=== PATIENT | male | born 1960 | race Caucasian/White ===

== ENCOUNTER 2016-10-03 08:57 | Emergency (ER) | payer OTHER ==
[~2016-10-03 08:57] MED LIST: AMLO5TAB2 PO; ANDR1.624 TD; CYMB60CA3 PO; GLIM2TA PO; IBUP-1114 PO; INVO300T PO; JANU50TA8 PO; LISI10TA4 PO; PRIL40CA PO; SUCR1TA PO
[2016-10-03] MEDS ORDERED: LIDOCAINE 2% MDV 20 ML VIAL As Ordered ONE (09:27)
[2016-10-03] MEDS ORDERED: NAPROXEN 250 MG TAB As Ordered ONE (10:02)
[2016-10-03] MEDS ORDERED: ACETAMINOPHEN 325 MG TAB As Ordered ONE (10:02)
--- NOTE | 2016-10-03 10:15 | EDDOCDS ---
Nurse's Notes [facility] Name: Preston Johnson Age: 56 yrs Sex: Male : 1960 Arrival Date: 10/03/2016 Time: 08:57 Bed PD Private MD: Diagnosis: Laceration without foreign body of scalp Presentation: 10/03 09:04 Presenting complaint: Patient states: hit head on door casing while walking into kr3 trailer. Laceration upper forehead. This patient has no additional risk factors. Mechanism of Injury: resulted from a direct blow. Adult Sepsis Screening: The patient does not have new or worsening altered mentation. Patient's respiratory rate is less than 22. Systolic blood pressure is greater than 100. Patient has a qSOFA score of 0- Negative Sepsis Screen. Suicide/Homicide risk assessment- the patient denies having any suicidal and/or homicidal ideations and does not present with any other emotional, behavioral or mental health complaints. 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 Transition of care: patient was not received from another setting of care. 09:04 Acuity: ROBBIE Level 4 kr3 09:04 Method Of Arrival: Walkin/Carried/Asstd kr3 Triage Assessment: 09:07 General: Appears in no apparent distress, comfortable, Behavior is cooperative. Pain: kr3 Denies pain. HIV screening NA for this visit Offered previously. Neurological: Level of Consciousness is awake, alert, Gait is steady, Speech is normal, Facial symmetry appears normal, Reports no additional symptoms. Injury Description: Laceration sustained to forehead is clean, was sustained 30-60 minutes ago. is bleeding no active bleeding noted. Historical: - Allergies: no known allergies; - Home Meds: 1. Janumet 50-1,000 mg oral tab 1 tab daily 2. Invokana 300 mg oral tab 1 tab once daily 3. lisinopril 10 mg Oral tab 1 tab once daily 4. Prilosec 40 mg Oral cpDR 1 cap 2 times per day 5. sucralfate 1 gram Oral tab 2 times per day 6. Cymbalta 60 mg Oral cpDR 1 cap once daily 7. Androgen 20.25/1.25gm daily 8. Amlodipine Unknown Oral once daily - PMHx: Diabetes - NIDDM: controlled; Gastric Ulcers; Hypertension; [place]; - PSHx: Cholecystectomy; Shoulder Arthroplasty. Right; - Social history: Smoking status: Patient states former smoker of tobacco. No barriers to communication noted, The patient speaks fluent Turkish, Speaks appropriately for age. - Family history: Not pertinent. - : The pt / caregiver states he / she is not on anticoagulants. Home medication list is obtained from the patient. - Exposure Risk Screening:: None identified. Screenin:38 Screening information is obtained from the patient. Fall risk: No risks identified. srm Assistance ADL's: requires no assistance with activities of daily living. Abuse/DV Screen: The patient / caregiver reports he/she is: not in a situation that causes fear, pain or injury. Nutritional screening: No deficits noted. home support is adequate. Assessment: 09:38 General: Appears in no apparent distress, Behavior is appropriate for age, cooperative. srm Neurological: Level of Consciousness is awake, alert, Oriented to person, place, time, Moves all extremities. Full function Gait is steady, Speech is normal, Facial symmetry appears normal. Respiratory: No deficits noted. Derm: 1-1.5 inch length lac to forehead more to the right midline. cleansed with wound service line bus cleaner. 10:13 Reassessment: Patient appears in no apparent distress at this time. Patient states srm feeling better. Vital Signs: 09:06 BP 160 / 88 LA Sitting (man/); Pulse 104; Resp 18; Temp 97.9(T); Pulse Ox 99% ; Weight srm 117.93 kg (R); Height 5 ft. 9 in. (175.26 cm); 09:06 Body Mass Index 38.39 (117.93 kg, 175.26 cm) srm Vitals: 09:11 Log In Time: October 03, 2016 at 08:57. srm Randy Coma Score: 09:04 Eye Response: spontaneous(4). Verbal Response: oriented(5). Motor Response: obeys kr3 commands(6). Total: 15. ED Course: 09:02 Patient visited by Laron Oleary Reg. mpb 09:02 Patient moved to Waiting mpb 09:04 Patient moved to Triage 3 kr3 09:05 Triage Initiated kr3 09:10 Patient visited by Leatha Hopkins RN. srm 09:13 Robert Reece PA-C is PHCP. jk8 09:13 Sandra Ziegler MD is Attending Physician. jk8 09:13 Patient visited by Robert Reece PA-C. jk8 09:28 Patient moved to srm 09:38 The patient / caregiver is instructed regarding the plan of care and ED course. srm Accompanied by Friend, Patient has correct armband on for positive identification. 09:39 Patient visited by Leatha Hopkins RN. srm 09:40 [facility] Payment Agreement was scanned into [employer] and attached to record. lg 10:14 No IV's were initiated during this patient's visit. No procedures done that require srm assistance. Administered Medications: 09:37 Drug: Lidocaine 10 ml [lidocaine 20 mg/mL (2 %) injection solution (10 mL)] {Note: srm administered by PA.} Route: Infiltration; 10:13 Drug: Acetaminophen 650 mg [acetaminophen 325 mg tablet (2 tabs)] Route: PO; srm 10:13 Drug: Naproxen 500 mg [naproxen 250 mg tablet (2 tabs)] Route: PO; srm Order Results: There are currently no results for this order. Outcome: 10:00 Discharge ordered by Provider. jk8 10:14 Discharge Assessment: Patient awake, alert and oriented x 3. No cognitive and/or srm functional deficits noted. Patient verbalized understanding of disposition instructions. patient administered narcotics - no. The following High Risk Discharge criteria are identified: None. Discharged to home ambulatory, with friend. Condition: good Condition: stable. Discharge instructions given to patient, Instructed on discharge instructions, follow up and referral plans. medication usage, Demonstrated understanding of instructions, medications, Pt was receptive of discharge instructions/ teaching. Prescriptions given X 2. No special radiology studies were completed. Property sent home with patient. 10:14 Patient left the ED. srm Signatures: Leatha Hopkins, RN RN Catrachito Castellon, Reg Reg lg Sabi Edmondson RN RN kr3 Robert Reece PA-C PA-C jk8 Laron Oleary, Reg Reg mpb MTDD
--- NOTE | 2016-10-03 10:15 | EDDOCDS ---
Physician Documentation [facility] Name: Preston Johnson Age: 56 yrs Sex: Male : 1960 Arrival Date: 10/03/2016 Time: 08:57 Bed PD Private MD: Disposition: 10/03/16 10:00 Discharged to Home/Self Care. Impression: Laceration without foreign body of scalp. - Condition is Stable. - Prescriptions for naproxen 500 mg Oral tablet - take 1 tablet by ORAL route every 12 hours; 28 tablet. Tylenol 325 mg Oral Tablet - take 2 tablet by ORAL route every 6 hours as needed; 1 bottle. - Medication Reconciliation, Local Pharmacy Hours form. - Follow up: Private Physician; When: 2 - 3 days; Reason: Recheck today's complaints. Follow up: Emergency Department; When: As soon as possible; Reason: Worsening of conditions. - Problem is new. - Symptoms are unchanged. Historical: - Allergies: no known allergies; - Home Meds: 1. Janumet 50-1,000 mg oral tab 1 tab daily 2. Invokana 300 mg oral tab 1 tab once daily 3. lisinopril 10 mg Oral tab 1 tab once daily 4. Prilosec 40 mg Oral cpDR 1 cap 2 times per day 5. sucralfate 1 gram Oral tab 2 times per day 6. Cymbalta 60 mg Oral cpDR 1 cap once daily 7. Androgen 20.25/1.25gm daily 8. Amlodipine Unknown Oral once daily - PMHx: Diabetes - NIDDM: controlled; Gastric Ulcers; Hypertension; [place]; - PSHx: Cholecystectomy; Shoulder Arthroplasty. Right; - Social history: Smoking status: Patient states former smoker of tobacco. No barriers to communication noted, The patient speaks fluent Hebrew, Speaks appropriately for age. - Family history: Not pertinent. - : The pt / caregiver states he / she is not on anticoagulants. Home medication list is obtained from the patient. - Exposure Risk Screening:: None identified. Vital Signs: 10/03 09:06 BP 160 / 88 LA Sitting (man/); Pulse 104; Resp 18; Temp 97.9(T); Pulse Ox 99% ; Weight srm 117.93 kg / 259.99 lbs (R); Height 5 ft. 9 in. (175.26 cm); 09:06 Body Mass Index 38.39 (117.93 kg, 175.26 cm) srm Ivor Coma Score: 09:04 Eye Response: spontaneous(4). Verbal Response: oriented(5). Motor Response: obeys kr3 commands(6). Total: 15. MDM: 09:17 Lidocaine 20 mg/mL (2 %) 10 ml Infiltration once; to bedside ordered. jk8 09:17 Wound Care ordered. jk8 09:28 Financial registration complete. lg 09:40 [facility] Payment Agreement was scanned into [employer] and attached to record. lg 09:58 Acetaminophen Tablet 650 mg PO once ordered. jk8 09:58 Naproxen 500 mg PO once; administer with food or milk ordered. jk8 Administered Medications: 09:37 Drug: Lidocaine 10 ml [lidocaine 20 mg/mL (2 %) injection solution (10 mL)] {Note: srm administered by PA.} Route: Infiltration; 10:13 Drug: Acetaminophen 650 mg [acetaminophen 325 mg tablet (2 tabs)] Route: PO; srm 10:13 Drug: Naproxen 500 mg [naproxen 250 mg tablet (2 tabs)] Route: PO; srm Signatures: Leatha Hopkins, RN RN srm Catrachito Montalvo, Huan Pressley lg Sabi Edmondson,ADENIKE RN kr3 Robert Reece PA-C PA-C jhuey The chart was reviewed and I authenticate all verbal orders and agree with the evaluation and treatment provided.Attachments: 09:40 [facility] Payment Agreement lg MTDD
--- NOTE | 2016-10-05 11:15 | EDDOCDS ---
Nurse's Notes [facility] Name: Preston Johnson Age: 56 yrs Sex: Male : 1960 Arrival Date: 10/03/2016 Time: 08:57 Bed PD Private MD: Diagnosis: Laceration without foreign body of scalp Presentation: 10/03 09:04 Presenting complaint: Patient states: hit head on door casing while walking into [employer] trailer. Laceration upper forehead. This patient has no additional risk factors. Mechanism of Injury: resulted from a direct blow. Adult Sepsis Screening: The patient does not have new or worsening altered mentation. Patient's respiratory rate is less than 22. Systolic blood pressure is greater than 100. Patient has a qSOFA score of 0- Negative Sepsis Screen. Suicide/Homicide risk assessment- the patient denies having any suicidal and/or homicidal ideations and does not present with any other emotional, behavioral or mental health complaints. Status: Patient is not a services account manager or dependent. Transition of care: patient was not received from another setting of care. 09:04 Acuity: ROBBIE Level 4 kr3 09:04 Method Of Arrival: Walkin/Carried/Asstd kr3 Triage Assessment: 09:07 General: Appears in no apparent distress, comfortable, Behavior is cooperative. Pain: kr3 Denies pain. HIV screening NA for this visit Offered previously. Neurological: Level of Consciousness is awake, alert, Gait is steady, Speech is normal, Facial symmetry appears normal, Reports no additional symptoms. Injury Description: Laceration sustained to forehead is clean, was sustained 30-60 minutes ago. is bleeding no active bleeding noted. Historical: - Allergies: no known allergies; - Home Meds: 1. Janumet 50-1,000 mg oral tab 1 tab daily 2. Invokana 300 mg oral tab 1 tab once daily 3. lisinopril 10 mg Oral tab 1 tab once daily 4. Prilosec 40 mg Oral cpDR 1 cap 2 times per day 5. sucralfate 1 gram Oral tab 2 times per day 6. Cymbalta 60 mg Oral cpDR 1 cap once daily 7. Androgen 20.25/1.25gm daily 8. Amlodipine Unknown Oral once daily - PMHx: Diabetes - NIDDM: controlled; Gastric Ulcers; Hypertension; [place]; - PSHx: Cholecystectomy; Shoulder Arthroplasty. Right; - Social history: Smoking status: Patient states former smoker of tobacco. No barriers to communication noted, The patient speaks fluent Macedonian, Speaks appropriately for age. - Family history: Not pertinent. - : The pt / caregiver states he / she is not on anticoagulants. Home medication list is obtained from the patient. - Exposure Risk Screening:: None identified. Screenin:38 Screening information is obtained from the patient. Fall risk: No risks identified. srm Assistance ADL's: requires no assistance with activities of daily living. Abuse/DV Screen: The patient / caregiver reports he/she is: not in a situation that causes fear, pain or injury. Nutritional screening: No deficits noted. home support is adequate. Assessment: 09:38 General: Appears in no apparent distress, Behavior is appropriate for age, cooperative. srm Neurological: Level of Consciousness is awake, alert, Oriented to person, place, time, Moves all extremities. Full function Gait is steady, Speech is normal, Facial symmetry appears normal. Respiratory: No deficits noted. Derm: 1-1.5 inch length lac to forehead more to the right midline. cleansed with wound book cleaner. 10:13 Reassessment: Patient appears in no apparent distress at this time. Patient states srm feeling better. Vital Signs: 09:06 BP 160 / 88 LA Sitting (man/); Pulse 104; Resp 18; Temp 97.9(T); Pulse Ox 99% ; Weight srm 117.93 kg (R); Height 5 ft. 9 in. (175.26 cm); 09:06 Body Mass Index 38.39 (117.93 kg, 175.26 cm) srm Vitals: 09:11 Log In Time: October 03, 2016 at 08:57. srm Randy Coma Score: 09:04 Eye Response: spontaneous(4). Verbal Response: oriented(5). Motor Response: obeys kr3 commands(6). Total: 15. ED Course: 09:02 Patient visited by Laron Oleary Reg. mpb 09:02 Patient moved to Waiting mpb 09:04 Patient moved to Triage 3 kr3 09:05 Triage Initiated kr3 09:10 Patient visited by Leatha Hopkins RN. srm 09:13 Robert Reece PA-C is PHCP. jk8 09:13 Sandra Ziegler MD is Attending Physician. jk8 09:13 Patient visited by Robert Reece PA-C. jk8 09:28 Patient moved to srm 09:38 The patient / caregiver is instructed regarding the plan of care and ED course. srm Accompanied by Friend, Patient has correct armband on for positive identification. 09:39 Patient visited by Leatha Hopkins RN. srm 09:40 [facility] Payment Agreement was scanned into [email or web address] and attached to record. lg 10:14 No IV's were initiated during this patient's visit. No procedures done that require srm assistance. 12:43 T-Sheet-- Draft Copy was scanned into [employer] and attached to record. klr Administered Medications: 09:37 Drug: Lidocaine 10 ml [lidocaine 20 mg/mL (2 %) injection solution (10 mL)] {Note: srm administered by PA.} Route: Infiltration; 10:13 Drug: Acetaminophen 650 mg [acetaminophen 325 mg tablet (2 tabs)] Route: PO; srm 10:13 Drug: Naproxen 500 mg [naproxen 250 mg tablet (2 tabs)] Route: PO; srm Order Results: There are currently no results for this order. Outcome: 10:00 Discharge ordered by Provider. jk8 10:14 Discharge Assessment: Patient awake, alert and oriented x 3. No cognitive and/or srm functional deficits noted. Patient verbalized understanding of disposition instructions. patient administered narcotics - no. The following High Risk Discharge criteria are identified: None. Discharged to home ambulatory, with friend. Condition: good Condition: stable. Discharge instructions given to patient, Instructed on discharge instructions, follow up and referral plans. medication usage, Demonstrated understanding of instructions, medications, Pt was receptive of discharge instructions/ teaching. Prescriptions given X 2. No special radiology studies were completed. Property sent home with patient. 10:14 Patient left the ED. srm Signatures: Leatha Hopkins, RN RN srm Catrachito Montalvo, Reg Reg lg Sabi Edmondson RN RN kr3 Robert Reece PA-C PA-C jk8 Laron Oleary, Reg Reg mpb Martina Caal klr Chart Complete MTDD
--- NOTE | 2016-10-05 11:15 | EDDOCDS ---
Physician Documentation [facility] Name: Preston Johnson Age: 56 yrs Sex: Male : 1960 Arrival Date: 10/03/2016 Time: 08:57 Bed PD Private MD: Disposition: 10/03/16 10:00 Discharged to Home/Self Care. Impression: Laceration without foreign body of scalp. - Condition is Stable. - Prescriptions for naproxen 500 mg Oral tablet - take 1 tablet by ORAL route every 12 hours; 28 tablet. Tylenol 325 mg Oral Tablet - take 2 tablet by ORAL route every 6 hours as needed; 1 bottle. - Medication Reconciliation, Local Pharmacy Hours form. - Follow up: Private Physician; When: 2 - 3 days; Reason: Recheck today's complaints. Follow up: Emergency Department; When: As soon as possible; Reason: Worsening of conditions. - Problem is new. - Symptoms are unchanged. Historical: - Allergies: no known allergies; - Home Meds: 1. Janumet 50-1,000 mg oral tab 1 tab daily 2. Invokana 300 mg oral tab 1 tab once daily 3. lisinopril 10 mg Oral tab 1 tab once daily 4. Prilosec 40 mg Oral cpDR 1 cap 2 times per day 5. sucralfate 1 gram Oral tab 2 times per day 6. Cymbalta 60 mg Oral cpDR 1 cap once daily 7. Androgen 20.25/1.25gm daily 8. Amlodipine Unknown Oral once daily - PMHx: Diabetes - NIDDM: controlled; Gastric Ulcers; Hypertension; [place]; - PSHx: Cholecystectomy; Shoulder Arthroplasty. Right; - Social history: Smoking status: Patient states former smoker of tobacco. No barriers to communication noted, The patient speaks fluent Kinyarwanda, Speaks appropriately for age. - Family history: Not pertinent. - : The pt / caregiver states he / she is not on anticoagulants. Home medication list is obtained from the patient. - Exposure Risk Screening:: None identified. Vital Signs: 10/03 09:06 BP 160 / 88 LA Sitting (man/); Pulse 104; Resp 18; Temp 97.9(T); Pulse Ox 99% ; Weight srm 117.93 kg / 259.99 lbs (R); Height 5 ft. 9 in. (175.26 cm); 09:06 Body Mass Index 38.39 (117.93 kg, 175.26 cm) srm [place] Coma Score: 09:04 Eye Response: spontaneous(4). Verbal Response: oriented(5). Motor Response: obeys kr3 commands(6). Total: 15. MDM: 09:17 Lidocaine 20 mg/mL (2 %) 10 ml Infiltration once; to bedside ordered. jk8 09:17 Wound Care ordered. jk8 09:28 Financial registration complete. lg 09:40 [facility] Payment Agreement was scanned into [employer] and attached to record. lg 09:58 Acetaminophen Tablet 650 mg PO once ordered. jk8 09:58 Naproxen 500 mg PO once; administer with food or milk ordered. jk8 12:43 T-Sheet-- Draft Copy was scanned into [employer] and attached to record. klr Administered Medications: 09:37 Drug: Lidocaine 10 ml [lidocaine 20 mg/mL (2 %) injection solution (10 mL)] {Note: srm administered by PA.} Route: Infiltration; 10:13 Drug: Acetaminophen 650 mg [acetaminophen 325 mg tablet (2 tabs)] Route: PO; srm 10:13 Drug: Naproxen 500 mg [naproxen 250 mg tablet (2 tabs)] Route: PO; srm Signatures: Leatha Hopkins, RN RN Catrachito Castellon Reg Reg lg Robie, Kathleen,RN RN kr3 Robert Reece PA-C PA-C jk8 Redder, Kathie klr The chart was reviewed and I authenticate all verbal orders and agree with the evaluation and treatment provided.Attachments: :40 [facility] Payment Agreement lg 12:43 T-Sheet-- Draft Copy klr Chart Complete MTDD
--- NOTE | 2016-10-05 11:15 | EDDOCDS ---
Physician Documentation [facility] Name: Preston Johnson Age: 56 yrs Sex: Male : 1960 Arrival Date: 10/03/2016 Time: 08:57 Bed PD Private MD: Disposition: 10/03/16 10:00 Discharged to Home/Self Care. Impression: Laceration without foreign body of scalp. - Condition is Stable. - Prescriptions for naproxen 500 mg Oral tablet - take 1 tablet by ORAL route every 12 hours; 28 tablet. Tylenol 325 mg Oral Tablet - take 2 tablet by ORAL route every 6 hours as needed; 1 bottle. - Medication Reconciliation, Local Pharmacy Hours form. - Follow up: Private Physician; When: 2 - 3 days; Reason: Recheck today's complaints. Follow up: Emergency Department; When: As soon as possible; Reason: Worsening of conditions. - Problem is new. - Symptoms are unchanged. Historical: - Allergies: no known allergies; - Home Meds: 1. Janumet 50-1,000 mg oral tab 1 tab daily 2. Invokana 300 mg oral tab 1 tab once daily 3. lisinopril 10 mg Oral tab 1 tab once daily 4. Prilosec 40 mg Oral cpDR 1 cap 2 times per day 5. sucralfate 1 gram Oral tab 2 times per day 6. Cymbalta 60 mg Oral cpDR 1 cap once daily 7. Androgen 20.25/1.25gm daily 8. Amlodipine Unknown Oral once daily - PMHx: Diabetes - NIDDM: controlled; Gastric Ulcers; Hypertension; [place]; - PSHx: Cholecystectomy; Shoulder Arthroplasty. Right; - Social history: Smoking status: Patient states former smoker of tobacco. No barriers to communication noted, The patient speaks fluent Polish, Speaks appropriately for age. - Family history: Not pertinent. - : The pt / caregiver states he / she is not on anticoagulants. Home medication list is obtained from the patient. - Exposure Risk Screening:: None identified. Vital Signs: 10/03 09:06 BP 160 / 88 LA Sitting (man/); Pulse 104; Resp 18; Temp 97.9(T); Pulse Ox 99% ; Weight srm 117.93 kg / 259.99 lbs (R); Height 5 ft. 9 in. (175.26 cm); 09:06 Body Mass Index 38.39 (117.93 kg, 175.26 cm) srm Wendell Coma Score: 09:04 Eye Response: spontaneous(4). Verbal Response: oriented(5). Motor Response: obeys kr3 commands(6). Total: 15. MDM: 09:17 Lidocaine 20 mg/mL (2 %) 10 ml Infiltration once; to bedside ordered. jk8 09:17 Wound Care ordered. jk8 09:28 Financial registration complete. lg 09:40 [facility] Payment Agreement was scanned into [employer] and attached to record. lg 09:58 Acetaminophen Tablet 650 mg PO once ordered. jk8 09:58 Naproxen 500 mg PO once; administer with food or milk ordered. jk8 12:43 T-Sheet-- Draft Copy was scanned into [employer] and attached to record. klr Administered Medications: 09:37 Drug: Lidocaine 10 ml [lidocaine 20 mg/mL (2 %) injection solution (10 mL)] {Note: srm administered by PA.} Route: Infiltration; 10:13 Drug: Acetaminophen 650 mg [acetaminophen 325 mg tablet (2 tabs)] Route: PO; srm 10:13 Drug: Naproxen 500 mg [naproxen 250 mg tablet (2 tabs)] Route: PO; srm Signatures: Leatha Hopkins, RN RN Catrachito Castellon Reg Reg lg Robie, Kathleen,RN RN kr3 Robert Reece PA-C PA-C jk8 Redder, Kathie klr The chart was reviewed and I authenticate all verbal orders and agree with the evaluation and treatment provided.Attachments: :40 [facility] Payment Agreement lg 12:43 T-Sheet-- Draft Copy klr Chart Complete MTDD
== END 2016-10-03 10:14 | disposition home or self-care (01) ==
LOC: M ED 08:57
DX: S01.01XA Laceration without foreign body of scalp, initial encounter (principal); W22.09XA Striking against other stationary object, initial encounter; Y92.89 Other specified places as the place of occurrence of the external cause; Y93.01 Activity, walking, marching and hiking; Y99.8 Other external cause status; I10 Essential (primary) hypertension; E11.9 Type 2 diabetes mellitus without complications; I25.2 Old myocardial infarction; K25.9 Gastric ulcer, unspecified as acute or chronic, without hemorrhage or perforation; Z79.899 Other long term (current) drug therapy; Z79.84 Long term (current) use of oral hypoglycemic drugs; Z87.891 Personal history of nicotine dependence

== ENCOUNTER → 2017-07-15 | Outpatient (REF) | payer OTHER | LOC: M LAB REF 12:29 | PROVIDERS: ATTEND Nurse Practitioner Adult Health | DX: Z11.59 Encounter for screening for other viral diseases (principal) ==

== ENCOUNTER → 2018-06-16 | Outpatient (REF) | payer OTHER | LOC: M SFHCPLAZ 11:28 | DX: D48.5 Neoplasm of uncertain behavior of skin (principal) | CPT/HCPCS: 88305 ==

== ENCOUNTER → 2018-12-13 | Outpatient (REF) | payer OTHER ==
[~2018-12-13] MED LIST changes: -AMLO5TAB2 PO; +AMLO5TAB6 PO; -GLIM2TA PO; +GLIM2TAB29 PO
[2018-12-14 08:06] LABS: LDL DIRECT 98 mg/dL (0-99)
== END ==
LOC: M LAB REF 12:25
PROVIDERS: ATTEND Nurse Practitioner Adult Health
DX: E78.00 Pure hypercholesterolemia, unspecified (principal)

== ENCOUNTER → 2019-01-08 | Outpatient (REF) | payer OTHER ==
[2019-01-08 13:38] LABS: H PYLORI QUALITATIVE IgG NEGATIVE (NEGATIVE)
[2019-01-08 13:55] LABS: AMYLASE 39 U/L (25-115); LIPASE 338 U/L (73-393)
[2019-01-10 00:06] LABS: TESTOSTERONE FREE (DIRECT) 13.1 pg/mL (7.2-24.0)
== END ==
LOC: M LAB REF 13:06
PROVIDERS: ATTEND Nurse Practitioner Adult Health
DX: R19.7 Diarrhea, unspecified (principal); R63.4 Abnormal weight loss; R53.83 Other fatigue

== ENCOUNTER 2019-02-08 11:12 | Day surgery (SDC) | payer OTHER ==
[~2019-02-08] VITALS: Ht 175.3 cm; Wt 110.2 kg
[~2019-02-08 11:12] MED LIST changes: +BYDU1INJ SC; +ESOM0.1C PO; +ESOM1CAP5 PO; +LORA0.5T11 PO; +METF10004 PO; +NS 1,000 ML IV ONE
[2019-02-08] MEDS ORDERED: LIDOCAINE 2% INJ 100 MG/5 ML SDV (FOR ANES.) As Ordered ONE (12:23)
[2019-02-08] MEDS ORDERED: PROPOFOL 200 MG/20 ML VIAL As Ordered ONE (12:24)
--- NOTE | 2019-02-08 12:25 | ROOR ---
Patient Name: Preston Johnson Procedure Date: 02/08/2019 12:09 PM Date of : 1960 Age: 58 Room: [facility] Gender: Male Note Status: Finalized Procedure: Upper GI endoscopy Indications: Suspected esophageal reflux Providers: Stevo Cerrato Jr, MD Referring MD: NERI MCKEON JR, MD Requesting Provider: Medicines: Propofol per Anesthesia Complications: No immediate complications. Procedure: Pre-Anesthesia Assessment: - Prior to the procedure, a History and Physical was performed, and patient medications and allergies were reviewed. The patient is competent. The risks and benefits of the procedure and the sedation options and risks were discussed with the patient. All questions were answered and informed consent was obtained. Patient identification and proposed procedure were verified by the physician and the nurse in the pre-procedure area and in the procedure room. Mental Status Examination: alert and oriented. Airway Examination: normal oropharyngeal airway and neck mobility. Respiratory Examination: clear to auscultation. CV Examination: normal. ASA Grade Assessment: II - A patient with mild systemic disease. After reviewing the risks and benefits, the patient was deemed in satisfactory condition to undergo the procedure. The anesthesia plan was to use moderate sedation / analgesia (conscious sedation). Immediately prior to administration of medications, the patient was re-assessed for adequacy to receive sedatives. The heart rate, respiratory rate, oxygen saturations, blood pressure, adequacy of pulmonary ventilation, and response to care were monitored throughout the procedure. The physical status of the patient was re-assessed after the procedure. The Endoscope was introduced through the mouth, and advanced to the second part of duodenum. The upper GI endoscopy was accomplished without difficulty. The patient tolerated the procedure well. Findings: The upper third of the esophagus, middle third of the esophagus and lower third of the esophagus were normal. The gastric antrum, prepyloric region of the stomach and pylorus were normal. Biopsies were taken with a cold forceps for histology. Scattered severe inflammation characterized by congestion (edema), friability, linear erosions, mucus and shallow ulcerations was found in the gastric body. The duodenal bulb, first portion of the duodenum and second portion of the duodenum were normal. Biopsies for histology were taken with a cold forceps for evaluation of celiac disease. Impression: - Normal upper third of esophagus, middle third of esophagus and lower third of esophagus. - Normal antrum, prepyloric region of the stomach and pylorus. Biopsied. - Gastritis. - Normal duodenal bulb, first portion of the duodenum and second portion of the duodenum. Biopsied. Recommendation: - Discharge patient to home (ambulatory). - Return to my office as previously scheduled. Stevo Cerrato MD Stevo Cerrato Jr, MD 02/08/2019 12:24:55 PM Electronically signed by Stevo Cerrato Jr, MD Number of Addenda: 0 Note Initiated On: 02/08/2019 12:09 PM Estimated Blood Loss: Estimated blood loss: none.
--- NOTE | 2019-02-08 12:43 | ROOR ---
Patient Name: Preston Johnson Procedure Date: 02/08/2019 12:10 PM Date of : 1960 Age: 58 Room: [facility] Gender: Male Note Status: Finalized Procedure: Colonoscopy Indications: Chronic diarrhea Providers: Stevo Cerrato Jr, MD Referring MD: NERI MCKEON JR, MD Requesting Provider: Medicines: Propofol per Anesthesia Complications: No immediate complications. Procedure: Pre-Anesthesia Assessment: - Prior to the procedure, a History and Physical was performed, and patient medications and allergies were reviewed. The patient is competent. The risks and benefits of the procedure and the sedation options and risks were discussed with the patient. All questions were answered and informed consent was obtained. Patient identification and proposed procedure were verified by the physician and the nurse in the pre-procedure area and in the procedure room. Mental Status Examination: alert and oriented. Airway Examination: normal oropharyngeal airway and neck mobility. Respiratory Examination: clear to auscultation. CV Examination: normal. ASA Grade Assessment: II - A patient with mild systemic disease. After reviewing the risks and benefits, the patient was deemed in satisfactory condition to undergo the procedure. The anesthesia plan was to use moderate sedation / analgesia (conscious sedation). Immediately prior to administration of medications, the patient was re-assessed for adequacy to receive sedatives. The heart rate, respiratory rate, oxygen saturations, blood pressure, adequacy of pulmonary ventilation, and response to care were monitored throughout the procedure. The physical status of the patient was re-assessed after the procedure. The Colonoscope was introduced through the anus and advanced to the cecum, identified by appendiceal orifice and ileocecal valve. The colonoscopy was performed without difficulty. The patient tolerated the procedure well. The quality of the bowel preparation was adequate. Findings: The rectum, recto-sigmoid colon, descending colon, transverse colon, ascending colon, cecum and appendiceal orifice appeared normal. Biopsies for histology were taken with a cold forceps from the ascending colon, transverse colon and descending colon for evaluation of microscopic colitis. A few small-mouthed diverticula were found in the sigmoid colon. The distal ileum appeared normal. Biopsies were taken with a cold forceps for histology. Non-bleeding internal hemorrhoids were found during endoscopy. The hemorrhoids were moderate. Impression: - The rectum, recto-sigmoid colon, descending colon, transverse colon, ascending colon, cecum and appendiceal orifice are normal. Biopsied. - Diverticulosis in the sigmoid colon. - The examined portion of the ileum was normal. Biopsied. - Non-bleeding internal hemorrhoids. Recommendation: - Repeat colonoscopy in 10 years for screening purposes. Stevo Cerrato MD Stevo Cerrato Jr, MD 02/08/2019 12:42:38 PM Electronically signed by Stevo Cerrato Jr, MD Number of Addenda: 0 Note Initiated On: 02/08/2019 12:10 PM Estimated Blood Loss: Estimated blood loss: none.
[2019-02-08 13:13] VITALS: BP 141/96
== END 2019-02-08 13:25 | disposition home or self-care (01) ==
LOC: M OPP 11:12
PROVIDERS: ATTEND Surgery
DX: K57.30 Diverticulosis of large intestine without perforation or abscess without bleeding (principal); K64.8 Other hemorrhoids; K29.70 Gastritis, unspecified, without bleeding; R19.7 Diarrhea, unspecified

== ENCOUNTER → 2019-10-19 | Outpatient (CLI) | payer OTHER ==
[~2019-10-19] MED LIST changes: -LORA0.5T11 PO; +LORA0.5T5 PO; -NS 1,000 ML IV ONE; +ROSU5TAB5 PO; +TEST1.622 TOP
[2019-10-19 11:27] LABS: HEMOGLOBIN A1c 7.2 %
== END ==
LOC: M LAB 08:38
PROVIDERS: ATTEND Internal Medicine Gastroenterology
DX: R10.819 Abdominal tenderness, unspecified site (principal); K29.70 Gastritis, unspecified, without bleeding

== ENCOUNTER → 2019-12-14 | Outpatient (REF) | payer OTHER | LOC: M LAB REF 12:05 | PROVIDERS: ATTEND Nurse Practitioner Family | DX: R53.83 Other fatigue (principal); R63.4 Abnormal weight loss ==

== ENCOUNTER → 2020-06-19 | Outpatient (REF) | payer OTHER ==
[~2020-06-19] MED LIST changes: +AMLO1TAB24 PO; -AMLO5TAB6 PO
== END ==
LOC: M LAB REF 11:39
PROVIDERS: ATTEND Nurse Practitioner Adult Health
DX: E29.1 Testicular hypofunction (principal)

== ENCOUNTER → 2021-01-21 | Outpatient (REF) | payer OTHER ==
[~2021-01-21] MED LIST changes: +LISI10TA22 PO; -LISI10TA4 PO
== END ==
LOC: M LAB REF 12:13
PROVIDERS: ATTEND Nurse Practitioner Adult Health
DX: E29.1 Testicular hypofunction (principal)

== ENCOUNTER → 2021-08-05 | Outpatient (REF) | payer OTHER ==
[~2021-08-05] MED LIST changes: -CYMB60CA3 PO; +CYMB60CA4 PO; -TEST1.622 TOP; +TEST75GE TOP
== END ==
LOC: M LAB REF 16:10
PROVIDERS: ATTEND Nurse Practitioner Adult Health
DX: E29.1 Testicular hypofunction (principal)

== ENCOUNTER → 2021-09-21 | Outpatient (CLI) | payer OTHER ==
[~2021-09-21] MED LIST changes: +VITMTA PO
== END ==
LOC: M LABSMTC 12:51
PROVIDERS: ATTEND Anesthesiology
DX: Z01.812 Encounter for preprocedural laboratory examination (principal); Z20.822 Contact with and (suspected) exposure to COVID-19

== ENCOUNTER 2021-09-25 06:02 | Day surgery (SDC) | payer OTHER ==
[~2021-09-25] VITALS: Ht 177.8 cm; Wt 107.0 kg
[~2021-09-25 06:02] MED LIST changes: +LIDOCAINE 1% MDV 20ML VIAL SQ PRN; +OFLOXACIN 0.3 % (OCUFLOX) OPTH SOL 5ML OS SCH; +PHENYLEPHRINE 2.5% OPHTH SOL 2ML OS SCH; +PROPARACAINE 0.5% OPHTH SOL 15ML OS ONE; +TROPICAMIDE 1% OPHTH SOLN 2ML OS SCH
[2021-09-25] MEDS ORDERED: LIDOCAINE 1% SDV 5ML VIAL As Ordered ONE (07:06)
[2021-09-25] MEDS ORDERED: ACETYLCHOLINE OPHTH SOLN 1% 2ML (MIOCHOL-E) As Ordered ONE (07:06)
[2021-09-25] MEDS ORDERED: CEFUROXIME 1MG/0.1ML INTRACAMERAL INJ As Ordered ONE (07:07)
[2021-09-25] MEDS ORDERED: BSS IRR 500ML/OMIDRIA 4ML IRR BAG (OR ONLY) As Ordered ONE (07:08)
[2021-09-25] MEDS ORDERED: HumaLOG INSULIN (NovoLOG) PER UNIT SC ONE (07:25)
[2021-09-25] MEDS ORDERED: MIDAZOLAM INJ 2MG/2ML VIAL (J2250 PER 1MG) As Ordered ONE (07:42)
[2021-09-25] MEDS ORDERED: fentaNYL 100 MCG/2 ML INJECTION As Ordered ONE (07:42)
[2021-09-25 08:25] VITALS: BP 163/90
== END 2021-09-25 08:47 | disposition home or self-care (01) ==
LOC: M SDC 06:02
PROVIDERS: ATTEND Ophthalmology
DX: H25.12 Age-related nuclear cataract, left eye (principal); H53 Visual disturbances; E11.42 Type 2 diabetes mellitus with diabetic polyneuropathy; I10 Essential (primary) hypertension; E78.00 Pure hypercholesterolemia, unspecified; Z79.899 Other long term (current) drug therapy; Z86.73 Personal history of transient ischemic attack (TIA), and cerebral infarction without residual deficits; Z86.74 Personal history of sudden cardiac arrest
CPT/HCPCS: 66984; J1097; J2250; J3010

== ENCOUNTER → 2021-10-19 | Outpatient (CLI) | payer OTHER ==
[~2021-10-19] MED LIST changes: -LIDOCAINE 1% MDV 20ML VIAL SQ PRN; -OFLOXACIN 0.3 % (OCUFLOX) OPTH SOL 5ML OS SCH; -PHENYLEPHRINE 2.5% OPHTH SOL 2ML OS SCH; -PROPARACAINE 0.5% OPHTH SOL 15ML OS ONE; -TROPICAMIDE 1% OPHTH SOLN 2ML OS SCH
== END ==
LOC: M LABSMTC 11:39
PROVIDERS: ATTEND Anesthesiology
DX: Z01.818 Encounter for other preprocedural examination (principal); Z11.52 Encounter for screening for COVID-19

== ENCOUNTER 2021-10-23 07:22 | Day surgery (SDC) | payer OTHER ==
[~2021-10-23] VITALS: Ht 177.8 cm; Wt 106.1 kg
[~2021-10-23 07:22] MED LIST changes: +AMIT10TA7 PO; +BSS IRR 500ML/OMIDRIA 4ML IRR BAG (OR ONLY) As Ordered ONE; +CEFUROXIME 1MG/0.1ML INTRACAMERAL INJ As Ordered ONE; +LIDOCAINE 1% SDV 5ML VIAL As Ordered ONE; +LR 1,000 ML IV ONE
[2021-10-23] MEDS ORDERED: PROPARACAINE 0.5% OPHTH SOL 15ML OS ONE (08:20)
[2021-10-23] MEDS ORDERED: PHENYLEPHRINE 2.5% OPHTH SOL 2ML OS SCH (08:20)
[2021-10-23] MEDS ORDERED: TROPICAMIDE 1% OPHTH SOLN 2ML OS SCH (08:20)
[2021-10-23] MEDS ORDERED: OFLOXACIN 0.3 % (OCUFLOX) OPTH SOL 5ML OS SCH (08:20)
[2021-10-23] MEDS ORDERED: PHENYLEPHRINE 2.5% OPHTH SOL 2ML OD SCH (08:27)
[2021-10-23] MEDS ORDERED: OFLOXACIN 0.3 % (OCUFLOX) OPTH SOL 5ML OD SCH (08:27)
[2021-10-23] MEDS ORDERED: TROPICAMIDE 1% OPHTH SOLN 2ML OD SCH (08:27)
[2021-10-23] MEDS ORDERED: PROPARACAINE 0.5% OPHTH SOL 15ML OD ONE (08:30)
[2021-10-23] MEDS ORDERED: MIDAZOLAM INJ 2MG/2ML VIAL (J2250 PER 1MG) As Ordered ONE (09:13)
[2021-10-23 09:50] VITALS: BP 156/81
== END 2021-10-23 10:10 | disposition home or self-care (01) ==
LOC: M SDC 07:22
PROVIDERS: ATTEND Ophthalmology
DX: H25.12 Age-related nuclear cataract, left eye (principal); I10 Essential (primary) hypertension; E11.9 Type 2 diabetes mellitus without complications; E78.5 Hyperlipidemia, unspecified; H93.19 Tinnitus, unspecified ear; I25.2 Old myocardial infarction; Z86.73 Personal history of transient ischemic attack (TIA), and cerebral infarction without residual deficits; F32.9 Major depressive disorder, single episode, unspecified; F41.9 Anxiety disorder, unspecified; G43.909 Migraine, unspecified, not intractable, without status migrainosus; G47.30 Sleep apnea, unspecified; Z87.891 Personal history of nicotine dependence; Z79.899 Other long term (current) drug therapy; Z79.84 Long term (current) use of oral hypoglycemic drugs
CPT/HCPCS: 66984; 92015; J1097; J2250

== ENCOUNTER → 2022-08-04 | Outpatient (REF) | payer OTHER ==
[~2022-08-04] MED LIST changes: -BSS IRR 500ML/OMIDRIA 4ML IRR BAG (OR ONLY) As Ordered ONE; -CEFUROXIME 1MG/0.1ML INTRACAMERAL INJ As Ordered ONE; -LIDOCAINE 1% SDV 5ML VIAL As Ordered ONE; -LR 1,000 ML IV ONE
== END ==
LOC: M LAB REF 13:10
PROVIDERS: ATTEND Podiatrist
DX: L03.031 Cellulitis of right toe (principal); M79.671 Pain in right foot

== ENCOUNTER → 2022-10-02 | Outpatient (REF) | payer OTHER | LOC: M LAB REF 18:26 | PROVIDERS: ATTEND Physician Assistant | DX: L02.11 Cutaneous abscess of neck (principal) ==

== ENCOUNTER 2023-05-16 22:15 | Emergency (ER) | payer OTHER ==
[2023-05-16 22:16] VITALS: BP 193/93; TEMP 98.8; O2SAT 99
== END 2023-05-17 01:00 | disposition left against medical advice (07) ==
LOC: M ED 22:15
DX: Z53.21 Procedure and treatment not carried out due to patient leaving prior to being seen by health care provider (principal)

== ENCOUNTER → 2023-08-03 | Outpatient (REF) | payer OTHER | LOC: M LAB REF 16:14 | PROVIDERS: ATTEND Podiatrist | DX: L03.032 Cellulitis of left toe (principal) ==

== ENCOUNTER → 2023-08-24 | Outpatient (CLI) | payer OTHER | LOC: M RAD 06:47 | PROVIDERS: ATTEND Podiatrist | DX: E10.51 Type 1 diabetes mellitus with diabetic peripheral angiopathy without gangrene (principal); E10.621 Type 1 diabetes mellitus with foot ulcer ==

== ENCOUNTER → 2023-09-20 | Outpatient (CLI) | payer OTHER ==
[~2023-09-20] MED LIST changes: +ISOVUE-370 76% 100ML VIAL As Ordered ONE
== END ==
LOC: M RAD 11:26
PROVIDERS: ATTEND Nurse Practitioner Adult Health
DX: I73.9 Peripheral vascular disease, unspecified (principal)

== ENCOUNTER → 2023-10-01 | Outpatient (CLI) | payer OTHER ==
[~2023-10-01] MED LIST changes: -ISOVUE-370 76% 100ML VIAL As Ordered ONE
[2023-10-01 12:01] LABS: HEMATOCRIT 48.4 % (42.0-52.0); MEAN CORPUSCULAR HEMOGLOBIN 30.8 pg (27.0-33.0); MEAN CORPUSCULAR HGB CONC 35.1 g/dl (32.0-36.5); MEAN CORPUSCULAR VOLUME 87.7 fl (80.0-96.0); PLATELET COUNT, AUTOMATED 268 10^3/uL (150-450); RED BLOOD COUNT 5.52 10^6/uL (4.30-6.10); WHITE BLOOD COUNT 8.5 10^3/uL (4.0-10.0)
[2023-10-01 12:15] LABS: INR 1.11; PARTIAL THROMBOPLASTIN TIME 26.4 SECONDS (24.8-34.2)
[2023-10-01 12:25] LABS: BLOOD UREA NITROGEN 23 MG/DL (9-23); CALCIUM LEVEL 9.3 MG/DL (8.3-10.6); CARBON DIOXIDE LEVEL 28 MMOL/L (20-31); CHLORIDE LEVEL 104 MMOL/L (98-107); GLOMERULAR FILTRATION RATE > 60.0 (>49); GLUCOSE, FASTING 244 MG/DL (74-106); POTASSIUM SERUM 4.5 MMOL/L (3.5-5.1); SODIUM LEVEL 138 MMOL/L (136-145)
== END ==
LOC: M LAB 11:23
PROVIDERS: ATTEND Physician Assistant
DX: I70.245 Atherosclerosis of native arteries of left leg with ulceration of other part of foot (principal)

== ENCOUNTER → 2023-11-02 | Outpatient (REF) | payer OTHER | LOC: M LAB REF 16:30 | PROVIDERS: ATTEND Nurse Practitioner Adult Health | DX: E29.1 Testicular hypofunction (principal) ==

== ENCOUNTER → 2024-02-15 | Outpatient (REF) | payer OTHER ==
[~2024-02-15] MED LIST changes: -ESOM0.1C PO; +ESOM1CAP20 PO; -ESOM1CAP5 PO; +ESOM20CA2 PO; +ROSU5TAB40 PO; -ROSU5TAB5 PO
== END ==
LOC: M LAB REF 16:17
PROVIDERS: ATTEND Podiatrist
DX: L03.032 Cellulitis of left toe (principal)

== ENCOUNTER → 2024-06-13 | Outpatient (CLI) | payer OTHER ==
[2024-06-13 17:28] LABS: BASO # 0.1 10^3/uL (0.0-0.2); BASO % 0.6 % (0.0-1.0); EOS # 0.1 10^3/uL (0.0-0.5); EOS % 1.5 % (0.0-3.0); HEMATOCRIT 48.7 % (42.0-52.0); HEMOGLOBIN 17.2 g/dl (13.5-17.5); LYMPH # 1.7 10^3/uL (1.5-5.0); LYMPH % 19.2 % (24.0-44.0); MEAN CORPUSCULAR HEMOGLOBIN 30.9 pg (27.0-33.0); MEAN CORPUSCULAR HGB CONC 35.3 g/dl (32.0-36.5); MEAN CORPUSCULAR VOLUME 87.6 fl (80.0-96.0); MONO # 0.7 10^3/uL (0.0-0.8); NEUTROPHILS # 6.2 10^3/uL (1.5-8.5); NEUTROPHILS % 70.2 % (36.0-66.0); PLATELET COUNT, AUTOMATED 245 10^3/uL (150-450); RED BLOOD COUNT 5.56 10^6/uL (4.30-6.10); WHITE BLOOD COUNT 8.9 10^3/uL (4.0-10.0)
[2024-06-13 17:42] LABS: INR 1.05; PARTIAL THROMBOPLASTIN TIME 26.8 SECONDS (24.8-34.2); PROTHROMBIN TIME 13.4 SECONDS (12.5-14.5)
[2024-06-13 17:49] LABS: BLOOD UREA NITROGEN 15 MG/DL (9-23); CALCIUM LEVEL 9.6 MG/DL (8.3-10.6); CARBON DIOXIDE LEVEL 30 MMOL/L (20-31); CHLORIDE LEVEL 103 MMOL/L (98-107); CREATININE FOR GFR 0.86 MG/DL (0.70-1.30); GLOMERULAR FILTRATION RATE > 60.0 (>49); GLUCOSE, FASTING 225 MG/DL (74-106); POTASSIUM SERUM 4.1 MMOL/L (3.5-5.1); SODIUM LEVEL 137 MMOL/L (136-145)
== END ==
LOC: M LAB 16:52
PROVIDERS: ATTEND Physician Assistant
DX: I70.235 Atherosclerosis of native arteries of right leg with ulceration of other part of foot (principal)

== ENCOUNTER → 2025-08-09 | Outpatient (CLI) | payer OTHER ==
[~2025-08-09] MED LIST changes: +AMIT10TA11 PO; -AMIT10TA7 PO; -ROSU5TAB40 PO; +ROSU5TAB49 PO
[2025-08-12 08:09] LABS: CREATININE FOR GFR 0.95 MG/DL (0.70-1.30); GLOMERULAR FILTRATION RATE > 90.0 (>49)
== END ==
LOC: M LAB 08:40
PROVIDERS: ATTEND Physician Assistant
DX: I70.213 Atherosclerosis of native arteries of extremities with intermittent claudication, bilateral legs (principal)

== ENCOUNTER → 2025-08-13 | Outpatient (CLI) | payer OTHER ==
[~2025-08-13] MED LIST changes: +ISOVUE-370 76% 100 ML VIAL As Ordered ONE
== END ==
LOC: M RAD 14:15
PROVIDERS: ATTEND Physician Assistant
DX: I70.213 Atherosclerosis of native arteries of extremities with intermittent claudication, bilateral legs (principal); I70.0 Atherosclerosis of aorta
CPT/HCPCS: 75635; Q9967